=== PATIENT | female | born 1985 ===

== ENCOUNTER 2020-03-14 07:30 | Inpatient (IN) ==
[~2020-03-14 07:30] MED LIST: Buffered Lidocaine 1% SYRIN 1 ml INTRADERM ONE; Dexamethasone IV 4 MG/ML VIAL 1 ml VIAL IV SLOW PU ONE; Lactated Ringers 1000 ml BAG 1,000 ML IV SCH
[2020-03-14] MEDS ORDERED: fentaNYL 250 mcg/5 ml 50 MCG/ML 5 ml VIAL (250 MCG) ONE (08:13)
[2020-03-14] MEDS ORDERED: Midazolam 2 mg/2 ml VIAL 1 mg/ml 2 ml VIAL (2 mg) ONE (08:13)
[2020-03-14] MEDS ORDERED: Succinylcholine 200 mg VIAL 20 mg/ml 10 ml VIAL (200 mg) ONE (08:14)
[2020-03-14] MEDS ORDERED: Ondansetron 4 mg VIAL 2 MG/ML 2 ml VIAL ONE ×2 (08:14→14:19)
[2020-03-14] MEDS ORDERED: Lidocaine 2% PF 5 ML VIAL ONE (08:14)
[2020-03-14] MEDS ORDERED: Propofol 10 MG/ML 20 ML BTL ONE (08:14)
[2020-03-14] MEDS ORDERED: Dexamethasone IV 4 MG/ML VIAL 1 ml VIAL ONE ×2 (08:36→10:47)
[2020-03-14] MEDS ORDERED: Heparin 5000 UNITS/ML 1 mL VIAL ONE (08:36)
[2020-03-14] MEDS ORDERED: ceFAZolin 1 GM ADVAN 1 GM ADDV.VIAL IVPB ONE ×2 (08:37→09:11)
[2020-03-14] MEDS ORDERED: ceFAZolin 2 GM PREMIX 2 GM/50 ML BAG ONE (08:37)
[2020-03-14] MEDS ORDERED: Rocuronium 50 mg VIAL 10 mg/ml 5 ml VIAL (50 mg) ONE (09:52)
[2020-03-14] MEDS ORDERED: Methylene Blue 0.5 % 50 MG/10 ML AMP IV ONE (10:12)
[2020-03-14] MEDS ORDERED: Bupivacaine 0.25% SDV 30 ML ONE (10:12)
[2020-03-14] MEDS ORDERED: Naloxone 0.4 mg VIAL 0.4 mg/ml 1 ml VIAL IV PRN (11:43)
[2020-03-14] MEDS ORDERED: Ondansetron 4 mg VIAL 2 MG/ML 2 ml VIAL IV PRN (11:43)
[2020-03-14] MEDS ORDERED: Sugammadex 500 MG/5 ML 5 ml VIAL IV PUSH ONE (12:40)
[2020-03-14] MEDS ORDERED: HYDROcodone/ACET. 7.5/325 LIQ 15 ML UDC PO PRN (12:57)
[2020-03-14] MEDS ORDERED: fentaNYL 100 mcg/2 ml 50 MCG/ML VIAL ONE (13:03)
[2020-03-14] MEDS: fentaNYL 100 mcg/2 ml 50 MCG/ML VIAL IV PRN ×4 (13:05→14:16)
[2020-03-14] MEDS ORDERED: HYDROmorphone 1 MG/1 ML SYRINGE ONE (13:46)
[2020-03-14] MEDS: HYDROmorphone 1 MG/1 ML SYRINGE IV PRN ×2 (13:47→13:58)
[2020-03-14] MEDS: Lactated Ringers 1000 ml BAG 1,000 ML IV SCH ×2 (14:50→21:33)
[2020-03-14] MEDS: Ondansetron 4 mg VIAL 2 MG/ML 2 ml VIAL IV PRN ×2 (15:14→21:34)
[2020-03-14] MEDS: HYDROmorphone 0.5 MG/0.5 ML SYRINGE IV SLOW PU PRN (18:36)
[2020-03-14] MEDS: Heparin 5000 UNITS/ML 1 mL VIAL SUBCUT SCH ×2 (21:34→23:31)
[2020-03-15] MEDS: HYDROmorphone 0.5 MG/0.5 ML SYRINGE IV SLOW PU PRN (01:51)
[2020-03-15] MEDS: Lactated Ringers 1000 ml BAG 1,000 ML IV SCH ×2 (04:14→11:06)
[2020-03-15] MEDS: Heparin 5000 UNITS/ML 1 mL VIAL SUBCUT SCH ×3 (05:51→21:28)
[2020-03-15] MEDS: D5W 1/2 NS KCl 20 meq 1000 ml 1,000 ML IV SCH ×2 (14:51→22:45)
[2020-03-16] MEDS: Heparin 5000 UNITS/ML 1 mL VIAL SUBCUT SCH (06:01)
[2020-03-16] MEDS: D5W 1/2 NS KCl 20 meq 1000 ml 1,000 ML IV SCH (06:41)
[2020-03-16 11:03] VITALS: BP 115/54
[2020-03-17] MEDS ORDERED: Scopolamine PATCH Remove NOTE PATCH OFF ONE (06:00)
== END 2020-03-16 12:45 | disposition home or self-care (01) | DRG 403 ==
LOC: AA 08:02 → SSU 14:34
PROVIDERS: ADMIT Surgery; ATTEND Surgery